=== PATIENT | male | born 1975 | race Caucasian/White ===

== ENCOUNTER 2017-11-23 09:35 | Emergency (ER) | payer OTHER ==
[~2017-11-23] VITALS: Ht 167.6 cm; Wt 81.6 kg
[~2017-11-23 09:35] MED LIST: MOTRIN
[2017-11-23 10:03] VITALS: BP 122/85
--- NOTE | 2017-11-23 10:12 | NUR ---
PATIENT AMBULATED TO BED 3.
--- NOTE | 2017-11-23 10:13 | NUR ---
patient is a 42 year-old male who was brought in for c/o right eye, drainage and swelling x 2 months. patient is alert and oriented. respirations are even and unlabored. no cough, dyspnea, nausea or diarrhea. observed patient's right eye, no redness or drainage observed. per patient, both redness and drainage present first thing in am. awaiting md er evaluation at this time.
[2017-11-23] MEDS ORDERED: FLUORESCEIN OPTH STRIP 0.6 MG ONE (10:39)
[2017-11-23] MEDS ORDERED: TETRACAINE HCL/PF 0.5% OPTH 4 ML BTL ONE (10:40)
[2017-11-23] MEDS ORDERED: ACETAMINOPHEN EXTRA STRENGTH 500 MG TAB PO ONE (11:55)
--- NOTE | 2017-11-23 13:20 | NUR ---
patient resting on his bed, respirations are even and unlabored. patient states that pain is decreasing and rates at 4/10. status update given. will continue to monitor.
[2017-11-23 13:30] LABS: BASOPHILS # (AUTO) 0.5 K/uL (0.00-0.22); BASOPHILS % (AUTO) 4.3 % (0.0-2.0); EOSINOPHILS # (AUTO) 0.1 K/uL (0-0.4); EOSINOPHILS % (AUTO) 0.6 % (0.0-4.0); HEMATOCRIT 46.2 % (36-52); HEMOGLOBIN 15.9 g/dL (12.0-18.0); LYMPHOCYTES # (AUTO) 1.9 K/uL (2.0-11.5); LYMPHOCYTES % (AUTO) 17.9 % (20.5-51.1); MEAN CORPUSCULAR HEMOGLOBIN 33 pg (27-31); MEAN CORPUSCULAR HGB CONC 34 g/dL (33-37); MEAN CORPUSCULAR VOLUME 95 fL (80-94); MONOCYTES # (AUTO) 0.6 K/uL (0.8-1.0); MONOCYTES % (AUTO) 6.2 % (1.7-9.3); NEUTROPHILS # (AUTO) 7.4 K/uL (1.8-7.7); PLATELET COUNT (AUTO) 251 K/uL (140-450); RED BLOOD CELL COUNT(AUTO) 4.88 MIL/uL (4.20-6.10); RED CELL DISTRIBUTION WIDTH 12.9 % (11.6-13.7); WHITE BLOOD COUNT (AUTO) 10.5 K/uL (4.8-10.8)
[2017-11-23 13:38] LABS: BARBITURATE, URINE NEG. ng/ml (NEG <=200); BENZODIAZEPINE, URINE NEG. ng/mL (NEG <=200); CANNABINOID, URINE NEG. ng/mL (NEG <=50); COCAINE, URINE NEG. ng/mL (NEG <=300); OPIATE, URINE NEG. ng/mL (NEG <=2000); PHENCYCLIDINE SCREEN,URINE NEG. ng/mL (NEG <=25)
[2017-11-23 13:46] LABS: ALBUMIN 3.8 g/dL (3.4-5.0); ANION GAP 13.4 (8-16); CARBON DIOXIDE 27.5 mmol/L (21-32); CREATININE 0.8 mg/dL (0.7-1.3); POTASSIUM 3.9 mmol/L (3.5-5.1); TOTAL BILIRUBIN 1.2 mg/dL (0.0-1.0)
--- NOTE | 2017-11-23 14:35 | NUR ---
patient resting comfortably on his bed. patient states that his pain has decreased. status update given on patient's condition. will continue to monitor.
[2017-11-23 17:02] VITALS: BP 128/73
--- NOTE | 2017-11-23 17:03 | NUR ---
Patient discharged with v/s stable. Written and verbal after care instructions given and explained. Patient verbalized understanding. Ambulatory with steady gait. All questions addressed prior to discharge. Advised to follow up with [facility] with Dr Maurice POOLE. All sulma and ct scan disk with pt, informed to take all paperwork with him. VSS.
== END 2017-11-23 17:03 | disposition home or self-care (01) ==
LOC: MED 09:35
DX: I88.9 Nonspecific lymphadenitis, unspecified (principal); D16.9 Benign neoplasm of bone and articular cartilage, unspecified; I10 Essential (primary) hypertension
CPT/HCPCS: 36415; 70470; 70482; 80053; 80305; 85025; 85651; 99285; Q9967

== ENCOUNTER 2023-01-05 16:41 | Emergency (ER) | payer OTHER ==
[~2023-01-05] VITALS: Ht 172.7 cm; Wt 74.8 kg
[2023-01-05 16:55] VITALS: BP 123/77
[2023-01-05] MEDS ORDERED: BACITRACIN OINT 500 UNITS/GM PKT TP ONE (17:40)
[2023-01-05] MEDS ORDERED: IBUPROFEN 600 MG TAB PO ONE (17:40)
[2023-01-05] MEDS ORDERED: IBUP-1842 PO ×2 (17:44→17:53)
[2023-01-05] MEDS ORDERED: CEPH-588 PO ×2 (17:44→17:53)
--- NOTE | 2023-01-05 18:03 | NUR ---
Patient discharged with v/s stable. Written and verbal after care instructions given and explained. Patient alert, oriented and verbalized understanding of instructions. Ambulatory with steady gait. All questions addressed prior to discharge. ID band removed. Patient advised to follow up with PMD. Rx of KEFLEX, MOTRIN given. Patient educated on indication of medication including possible reaction and side effects. Opportunity to ask questions provided and answered.
== END 2023-01-05 18:00 | disposition home or self-care (01) ==
LOC: MED 16:41
DX: S61.237A Puncture wound without foreign body of left little finger without damage to nail, initial encounter (principal); X58.XXXA Exposure to other specified factors, initial encounter; Y93.89 Activity, other specified; Y92.89 Other specified places as the place of occurrence of the external cause; Y99.8 Other external cause status
CPT/HCPCS: 73140; 90471; 90715; 99283

== ENCOUNTER 2024-06-19 09:24 | Emergency (ER) | payer OTHER ==
[~2024-06-19] VITALS: Ht 165.1 cm; Wt 83.9 kg
[~2024-06-19 09:24] MED LIST changes: +CEPH-588 PO; +IBUP-1842 PO
[2024-06-19 09:30] VITALS: BP 136/87; PULSE 65; RESP 16; TEMP 97.9; O2SAT 97
[2024-06-19] MEDS: KETOROLAC 60 MG/2 ML VIAL IM ONE (10:47)
[2024-06-19] MEDS ORDERED: ACET-8905 PO (11:02)
== END 2024-06-19 11:13 | disposition home or self-care (01) ==
LOC: MED 09:24
DX: M25.561 Pain in right knee (principal); R03.0 Elevated blood-pressure reading, without diagnosis of hypertension; Z79.899 Other long term (current) drug therapy
CPT/HCPCS: 73562; 96372; 99283; J1885